=== PATIENT | female | born 1965 | race Caucasian/White ===

== ENCOUNTER 2019-06-23 06:58 | Day surgery (SDC) | payer BC ==
[~2019-06-23] VITALS: Ht 167.6 cm; Wt 65.3 kg
[~2019-06-23 06:58] MED LIST: BENADRYL25 MG PO; BIOTIN1 M1 PO; CELEXA10 MG PO; MULTIPLE VITAM1 EAC1 PO; OMEPRAZOLE20 MG PO; PATANOL5 ML OU; VITAMIN B COMP1 EAC3 PO
--- NOTE | 2019-06-23 09:12 | NUR ---
06/23/19 0912 Ninoska Amador 0907 PATIENT ARRIVES TO PACU UNRESPONSIVE TO PAIN. RESP EVEN AND UNLABORED, ORAL AIRWAY IN PLACE, MASK AT 10 LITERS, DECREASED TO 6L ON ARRIVAL.
--- NOTE | 2019-06-23 09:29 | NUR ---
PT ALERT, ORIENTED AND SUPPORTED BY HER GENIE. PT HAS HAD PREVIOUS EGD, AND SEEMED INFORMED. HAD PLEASANT VISIT, EXTENDED A BLESSING, WILL FOLLOW NEEDED
--- NOTE | 2019-06-23 10:12 | OR ---
[facility] [address], [place] [address] Signed DATE OF OPERATION: 06/23/2019 SURGEON: Queta Hillman MD PREOPERATIVE DIAGNOSES: 1. Gastric sleeve procedure (January 2019). 2. Distal esophageal dysphagia. 3. Heartburn. POSTOPERATIVE DIAGNOSES: 1. Small hiatal hernia (38-35 cm). 2. Mild diffuse gastritis. PROCEDURES: EGD with CLOtest and biopsies of the bulb, antrum and GE junction. ESTIMATED BLOOD LOSS: None. 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 Since then, she has been having trouble with distal esophageal dysphagia to both solids and liquids. She has been using omeprazole with moderate results. She is worried because her brother had achalasia and required multiple dilations followed by surgery. We sent Maru for a barium swallow. She actually did quite well. She has normal esophageal motility and no strictures noted. She does have a small hiatal hernia with fairly significant reflux during the test. Of course, she has standard anatomic changes to the stomach following the gastric sleeve procedure. In the office, I reviewed all this with Maru in detail. We also reviewed upper endoscopy. She understands the nature of the test along with its risks including, but not limited to gas bloating, crampy abdominal pain, bleeding, perforation requiring surgery, and missed diagnosis. In addition, she tells me she has multiple drug allergies and gets very nauseated and vomits after anesthesia. She explained that she always has monitored anesthesia care given those findings. In addition, we like monitored anesthesia care for airway control and management if indeed we have to dilate the stricture. She had expressed understanding and wished to proceed as above. PROCEDURE NOTE: Maru was taken into our endoscopy suite and placed in the supine semi-recumbent position. 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 A bite block was utilized. The adult gastroscope was introduced and advanced under direct visualization of camera without difficulty. Indeed, she has a small hiatal hernia measuring from 35-38 cm. Very minimal disruption to the Z-line. We then entered into her stomach and we could easily see the well-healed staple line. It then traveled in and opened up into the antrum classic for gastric sleeve procedure. She had some mild erythematous changes in the antrum. No ulcerations. The scope was passed into the duodenum itself. The duodenum and ampulla of Vater looked quite healthy. We went ahead and took a single biopsy of the pyloric bulb for pathologic review. Otherwise, it looked healthy. We had just enough room in the antrum to retroflex the scope. Of course, we can see the gastric sleeve proximal to the antrum. We took a biopsy of the antrum for pathologic review as well as CLOtest. We then withdrew the scope up through the body of the stomach and back up to her hiatal hernia. Again, it measured out from 38-35 cm. No ulceration or obvious inflammation in the hiatal hernia itself. We went ahead and took a biopsy along the edge of the Z-line. There was no Vega's mucosa, no distal esophagitis. The middle and upper esophagus were unremarkable. After this, the gas was suctioned out and the gastroscope removed. Maru tolerated the procedure quite well. RECOMMENDATIONS: I will see Maru back in my office in 7 to 14 days to review her results. Queta Hillman MD ALB/MODL /[id number] cc: MILLI Rivera MD Copies: QUETA HILLMAN MD ~ Electronically Signed By: QUETA HILLMAN MD 06/23/19 1012 PATIENT NAME: MARU MERLOS OPERATIVE REPORT DATE OF : 67 REPORT #: [id number] PHYSICIAN: QUETA HILLMAN MD PCP: JOE HUA PA-C REPORT IS CONFIDENTIAL AND NOT TO BE RELEASED WITHOUT AUTHORIZATION
== END 2019-06-23 09:55 | disposition home or self-care (01) ==
LOC: DS 06:58 → OPS 06:58 → DS 08:15 → OPS 09:55
PROVIDERS: Colon & Rectal Surgery
PROC: 0DB78ZX Excision of Stomach, Pylorus, Via Natural or Artificial Opening Endoscopic, Diagnostic (ICD-10-PCS; 2019-06-23)
PROC: 0DB48ZX Excision of Esophagogastric Junction, Via Natural or Artificial Opening Endoscopic, Diagnostic (ICD-10-PCS; 2019-06-23)
PROC: 0DB98ZX Excision of Duodenum, Via Natural or Artificial Opening Endoscopic, Diagnostic (ICD-10-PCS; principal; 2019-06-23 08:15)
DX: K29.80 Duodenitis without bleeding (principal); K29.50 Unspecified chronic gastritis without bleeding; K44.9 Diaphragmatic hernia without obstruction or gangrene; F41.9 Anxiety disorder, unspecified; G47.33 Obstructive sleep apnea (adult) (pediatric); K21.9 Gastro-esophageal reflux disease without esophagitis; G43.909 Migraine, unspecified, not intractable, without status migrainosus; K22.0 Achalasia of cardia; Z98.84 Bariatric surgery status; Z79.899 Other long term (current) drug therapy; Z88.5 Allergy status to narcotic agent; Z88.8 Allergy status to other drugs, medicaments and biological substances; Z88.2 Allergy status to sulfonamides; Z91.040 Latex allergy status; Z91.041 Radiographic dye allergy status
CPT/HCPCS: 86677; J2405; J2704; J7121